=== PATIENT | female | born 1965 | race Caucasian/White ===

== ENCOUNTER → 2022-05-15 | Outpatient (CLI) | payer OTHER ==
[2022-05-15 18:42] LABS: C Reactive Protein <0.30 mg/dL (0.00-0.80); Rheumatoid Factor, Qnt <10 IU/mL (0-15); Uric Acid 3.8 mg/dL (2.9-7.7)
[2022-05-15 18:46] LABS: Basophils # (A) 0.03 X 10*3/uL (0.00-0.10); Basophils % (A) 0.5 %; Eosinophils # (A) 0.05 X 10*3/uL (0.04-0.35); Eosinophils % (A) 0.9 %; HCT 42.4 % (37.2-46.3); HGB 13.5 g/dL (12.0-15.0); Immature Grans, Automated 0.3 %; Lymphocytes # (A) 1.99 X 10*3/uL (0.90-5.00); Lymphocytes % (A) 34.5 %; MCH 28.3 pg (27.0-32.0); MCHC 31.8 g/dL (32.0-37.0); MCV 88.9 fL (80.0-97.0); Mean Platelet Volume 11.6 fL (9.5-12.2); Monocytes # (A) 0.34 X 10*3/uL (0.20-1.00); Monocytes % (A) 5.9 %; NRBC Per 100 WBC 0 /100 WBCS (0.0-0.0); Neutrophils # (A) 3.33 X 10*3/uL (1.80-7.70); Neutrophils % (A) 57.9 %; Platelet Count 296 X 10*3/uL (140-440); RBC 4.77 X 10*6/uL (4.10-5.20); RDW 13.3 % (11.5-14.5); WBC 5.76 X 10*3/uL (4.50-10.00)
[2022-05-15 20:18] LABS: DNA Double-Stranded NEGATIVE (NEGATIVE)
[2022-05-15 20:58] LABS: Erythrocyte Sedimentation Rate 17 mm/Hr (0-30)
--- NOTE | 2022-05-16 09:51 | MR ---
EXAMINATION TYPE: MR shoulder RT wo con DATE OF EXAM: 05/15/2022 COMPARISON: Outside right shoulder x-ray the 2021 HISTORY: Right shoulder pain with limited movement TECHNIQUE: Multiplanar, multisequence imaging of the right shoulder is performed without contrast. FINDINGS: Rotator Cuff: Marked abnormal signal in the distal supraspinatus tendon with small focal full-thickne ss tear sagittal image 25 involving articular surface fibers. Infraspinatus tendon intact. Subscapula ris tendon intact. Rotator cuff muscle bulk preserved. Acromioclavicular Joint: Type II downsloping acromion. Loss of the inferior fat plane. Mild to modera te superior capsular hypertrophy. Glenohumeral Joint: Moderate size joint effusion. No significant spurring. Mild to moderate joint spa ce narrowing. Labrum: The superior labrum has abnormal signal consistent with degenerative tearing. Biceps Tendon: The long head of biceps is in normal location within bicipital groove. Bone marrow signal: No focal abnormal marrow signal is appreciated. Other: No additional significant abnormality is appreciated. IMPRESSION: 1. Significant tendinopathy distal supraspinatus tendon with also some tearing present. 2. Moderate degenerative changes in right shoulder as detailed above.
[2022-05-16 11:56] LABS: HLA B27 NEGATIVE
== END | disposition home or self-care (01) ==
LOC: RADMRIMAIN 12:27
PROVIDERS: ATTEND Orthopaedic Surgery
DX: M19.011 Primary osteoarthritis, right shoulder (principal)
CPT/HCPCS: 84550; 85025; 85652; 86038; 86140; 86225; 86431; 86812

== ENCOUNTER → 2022-10-06 | Outpatient (CLI) | payer OTHER ==
[2022-10-06 23:03] LABS: Basophils # (A) 0.04 X 10*3/uL (0.00-0.10); Basophils % (A) 0.5 %; Eosinophils # (A) 0.07 X 10*3/uL (0.04-0.35); Eosinophils % (A) 0.9 %; HCT 41.3 % (37.2-46.3); HGB 13.4 g/dL (12.0-15.0); Immature Grans, Automated 0.7 %; Lymphocytes # (A) 2.56 X 10*3/uL (0.90-5.00); Lymphocytes % (A) 31.6 %; MCH 29.7 pg (27.0-32.0); MCHC 32.4 g/dL (32.0-37.0); MCV 91.6 fL (80.0-97.0); Mean Platelet Volume 10.9 fL (9.5-12.2); Monocytes # (A) 0.54 X 10*3/uL (0.20-1.00); Monocytes % (A) 6.7 %; NRBC Per 100 WBC 0 /100 WBCS (0.0-0.0); Neutrophils # (A) 4.83 X 10*3/uL (1.80-7.70); Neutrophils % (A) 59.6 %; Platelet Count 294 X 10*3/uL (140-440); RBC 4.51 X 10*6/uL (4.10-5.20); RDW 12.9 % (11.5-14.5)
[2022-10-06 23:09] LABS: African American GFR (CKD) 109.9 (60.0-200.0); Anion Gap 10.2 mmol/L (10.00-18.00); BUN/Creat Ratio 11.86 Ratio (12.00-20.00); Blood Urea Nitrogen 8.3 mg/dL (9.0-27.0); Calcium 9.5 mg/dL (8.7-10.3); Carbon Dioxide 26.8 mmol/L (20.0-27.5); Non-African American GFR(CKD) 94.8 (60.0-200.0); Potassium 4.3 mmol/L (3.5-5.5)
== END ==
LOC: LABWHC1 12:47
PROVIDERS: ATTEND Orthopaedic Surgery
DX: Z01.812 Encounter for preprocedural laboratory examination (principal); Z01.818 Encounter for other preprocedural examination; M75.41 Impingement syndrome of right shoulder
CPT/HCPCS: 36415; 80048; 85025; 93005

== ENCOUNTER 2022-10-17 06:06 | Day surgery (SDC) | payer OTHER ==
[2022-10-13 10:43] VITALS: BMI 23.1
--- NOTE | 2022-10-16 10:51 | P.HPOR ---
History of Present Illness H&P Date: 10/16/22 Chief Complaint: Right shoulder pain The patient is a 57-year-old abuav-hitr-peqizyam female who presents with progressive right shoulder pain for the past year. She's having pain with overhead use and at night. She's tried injections along with therapy without much relief. She is having daily pain that limits her. Review of Systems As per HPI Past Medical History Past Medical History: Fibromyalgia, Osteoarthritis (OA), Thyroid Disorder Additional Past Medical History / Comment(s): MIGRAINE HEADACHE- PAST HISTORY , HYPOTHYROIDISM - PROR NO MEDS NOW , History of Any Multi-Drug Resistant Organisms: None Reported Past Surgical History: Adenoidectomy, Section, Hysterectomy, Orthopedic Surgery, Tonsillectomy Additional Past Surgical History / Comment(s): STATES SHE HAD A POST OP INFECTION WITH C SECTION AND KNEE SURGERY REQUIRED HOSPITALIZATION AND IV ANTIBIOTICS , RIGHT KNEE WITH HARDWARE, SINUS SURGERY, SEVERAL HEMORRHOID SURGERIES, TUBES IN EARS, D&C , ARTHROSCOPIC RIGHT KNEE X2 Past Anesthesia/Blood Transfusion Reactions: Previous Problems w/ Anesthesia, Postoperative Nausea & Vomiting (PONV) Smoking Status: Current every day smoker - Past Family History Mother Family Medical History: Cancer Additional Family Medical History / Comment(s): LUNG CANCER, Medications and Allergies Home Medications Medication Instructions Recorded Confirmed Type Amitriptyline HCl 50 mg PO 1600 10/13/22 10/13/22 History Azelastine HCl 137 mcg EA NOSTRIL DAILY 10/13/22 10/13/22 History Fluticasone Nasal [place] [Flonase 1 spray EA NOSTRIL DAILY 10/13/22 10/13/22 History Nasal [place]] Morphine Sulfate ER [Ms Contin] 15 mg PO HS 10/13/22 10/13/22 History methylPREDNISolone [Medrol Dose 0 mg PO DIRECTED 10/13/22 10/13/22 History Pack] oxyCODONE HCL/ACETAMINOPHEN 1 tab PO Q4-6H PRN 10/13/22 10/13/22 History [Endocet 10-325 mg] Allergies Allergy/AdvReac Type Severity Reaction Status Date / Time gentamicin Allergy Vomiting Verified 10/13/22 09:47 Physical Examination - Shoulder right Appearance: effusion Tenderness with palpation: anterior Pain: with forward flexion ROM: forward flexion: 160 degrees ROM: internal rotation: mid lumbar ROM: external rotation: 50 degrees Strength: abduction: 5/5 Strength: external rotation: 5/5 Tests: internal impingement tests: positive Results The patient is a well-developed well-nourished female, approximate 5 foot 8/150 pounds of mesomorphic habitus. HEENT exam is nonfocal, neck is supple. Her distal neurovascular appears intact in the right upper extremity. - Diagnostic results Shoulder MRI: image reviewed (Right shoulder MRI is reviewed and shows a tear involving the supraspinatus along with degenerative changes involving the glenohumeral joint.) Assessment and Plan Assessment: Right shoulder impingement/symptomatic rotator cuff tear Right proximal bicipital tendinosis Plan: I talked to the patient length regarding her condition and treatment options. At this point she is quite symptomatic and limited despite previous conservative measures. After thorough discussion she opted to proceed with surgery. We will plan to proceed with arthroscopic evaluation with probable subacromial decompression, rotator cuff repair, and possible biceps tenotomy. Risks and benefits were discussed at length in layman's terms. Time with Patient: Less than 30
[~2022-10-17 06:06] MED LIST: DEXAMETHASONE SOD PHOSPHATE 4 MG/ML 1 ML VIAL IV ONE; HYDROmorphone 0.5 MG/0.5 ML SYRINGE IVP PRN; LACTATED RINGERS 1,000 ML IV SCH; ONDANSETRON 4 MG/2 ML VIAL IVP ONE
[2022-10-17] MEDS ORDERED: SCOPOLAMINE 1 MG/72 HR PATCH TRANSDERM ONE (07:26)
[2022-10-17] MEDS ORDERED: MIDAZOLAM 2 MG/2 ML VIAL IVP ONE (07:30)
[2022-10-17] MEDS ORDERED: fentaNYL (PF) 50 MCG/ML 2 ML AMP ONE (07:51)
[2022-10-17] MEDS ORDERED: DEXAMETHASONE SOD PHOSPHATE 4 MG/ML 1 ML VIAL ONE (07:51)
[2022-10-17] MEDS ORDERED: LIDOCAINE 2% INJ 20 MG/ML (2 ML VIAL) ONE (07:51)
[2022-10-17] MEDS ORDERED: MIDAZOLAM 2 MG/2 ML VIAL ONE (07:51)
[2022-10-17] MEDS ORDERED: ROPIVACAINE 5 MG/ML 30 ML VIAL ONE (07:51)
[2022-10-17] MEDS ORDERED: PROPOFOL 10 MG/ML 20 ML VIAL IV ONE (07:51)
[2022-10-17] MEDS ORDERED: SUCCINYLCHOLINE CHLORIDE 200 MG/10 ML VIAL IV ONE (07:51)
[2022-10-17] MEDS ORDERED: SODIUM CHLORIDE 0.9% 100 ML with ceFAZolin 2,000 MG IV ONE ×2 (08:05)
[2022-10-17] MEDS ORDERED: EPINEPHrine (PF) 1 ML in SODIUM CHLORIDE 0.9% IRRIGATIO 3,000 ML IRRIGATION ONE ×8 (08:21)
--- NOTE | 2022-10-17 08:43 | P.ANPRN ---
Procedure Note - Anesthesia - Nerve Block Performed Right Interscalene Single Time Out Performed: Yes Date of Procedure: 10/17/22 Procedure Start Time: 07:00 Procedure Stop Time: 07:06 Location of Patient: PreOp Indication: Acute Post-Operative Pain, Requested by Surgeon Sedation Type: Sedate with meaningful contact maintained Preparation: Sterile Prep, Sterile Dressing Position: Sitting Catheter: None Needle Types: Facet Needle Gauge: 21 Ultrasound used to visualize needle placement: Yes Ultrasound used to observe medication spread: Yes Injectate: 0.5% Ropivacaine (see comment for volume) (20 ml + decadron 4 mg) Blood Aspirated: No Pain Paresthesia on Injection Noted: No Resistance on Injection: Normal Image Stored and Saved: Yes Events: Uneventful and Well Tolerated
--- NOTE | 2022-10-17 09:18 | P.OP ---
Date of Procedure: 10/17/22 Preoperative Diagnosis: Right shoulder impingement/rotator cuff tear Postoperative Diagnosis: Same, 1 cm supraspinatus tear Procedure(s) Performed: Right shoulder arthroscopic subacromial decompression/rotator cuff repair Implants: Arthrex 4.75 mm swivel lock anchor 1, 5.5 mm swivel lock anchor 1 Anesthesia: kym BORJA Surgeon: Tian Escamilla Fractionation Supervisor #1: Jasiel Kinsey Estimated Blood Loss (ml): 10 Pathology: none sent Condition: stable Disposition: PACU Indications for Procedure: The patient's a 57-year-old female who presents with right shoulder pain for the past year despite conservative treatment. A discussion of the risks and benefits of operative intervention versus continued conservative measures was made with the patient. She opted to proceed with surgery. Operative risks to include infection, neurovascular injury, development of blood clots, possible tendon rerupture, possible postoperative stiffness and need for subsequent procedures was discussed. Informed consent was obtained. Operative Findings: As below Description of Procedure: The patient was brought to the operating room, and after induction of general anesthesia was placed in a beachchair position. A preoperative interscalene block was placed for postoperative analgesia. I examined the right shoulder. There was no gross block to passive motion or gross glenohumeral instability. The right upper extremity was prepped and draped in normal fashion. The bony outlines the acromion, distal clavicle, and coracoid process were outlined with a skin marker. The glenohumeral joint was inflated with 50 mL of saline utilizing a spinal needle from posterior approach. A posterior portal was made through a 5 mm skin incision 1 cm medial and inferior to the posterior lateral border time. A blunt trocar was used to easily into the joint. Diagnostic arthroscopy was performed. An anterior portal was made just lateral to the coracoid process entering the joint above the subscapularis tendon. The subscapularis tendon appeared to be intact. Anterior labrum was intact. The inferior recess was inspected. The posterior labrum was intact. The biceps and its anchor appear to be intact. It was some synovitis of the rotator interval debrided with a motorized shaver. Grade 2 chondral changes were noted involving the anterior aspect of the humeral head. On inspection the rotator cuff, a high-grade partial-thickness tear involving the anterior aspect the supraspinatus was noted. The posterior portion of the rotator cuff appeared to be intact. A lateral portal was made 2 centimeters inferior to the anterior lateral border of the acromion. The rotator cuff was then mobilized with a traction suture. This was then easily brought back to the greater tuberosity. The soft tissue on the undersurface of the acromion was debrided with a motorized shaver and electrocautery clearly defining the anterior medial and lateral borders as well as the distal clavicle. An anterior inferior acromioplasty was performed with a motorized shakira starting anterolateral, then extending this posteriorly, then extending this medially. I converted to a flat acromion and this was verified in the posterior and lateral viewing portals. The greater tuberosity was lightly decorticating with a shaver down to a bleeding bony surface. An accessory superior lateral portal was made just off the lateral edge of the acromion for anchor placement. A 4.75 mm swivel lock anchor was placed just off the articular surface. Good purchase was obtained. These fiber tapes were then passed the rotator cuff with a scorpion suture passer. A lateral row was created utilizing these tapes along with a central suture. 5.5 mm swivel lock anchor was placed laterally. Good purchase was obtained. Final arthroscopic view showed adequate compression at the footprint. The arthroscope was then removed. The portals were closed with simple 3-0 nylon sutures. A sterile dressing was applied in addition to a sling. The patient was then awoken from general anesthesia and transferred to recovery room in good condition. Blood loss was estimated at 10 mL. No complications were incurred. Sponge and needle counts were correct in the case. Jasiel LOUIE assisted and the major components of the case to include arm positioning, anchor placement, and rotator cuff repair.
[2022-10-17 09:32] VITALS: TEMP 96.8
[2022-10-17] MEDS ORDERED: HYDROcodone/APAP 10-325MG 1 EACH TAB ONE (09:57)
[2022-10-17] MEDS ORDERED: HYDROcodone/APAP 10-325MG 1 EACH TAB PO ONE (10:00)
[2022-10-17 10:33] VITALS: RESP 17
[2022-10-17 10:47] VITALS: BP 156/100; PULSE 97
== END 2022-10-17 11:00 | disposition home or self-care (01) ==
LOC: OR 06:06
PROVIDERS: ATTEND Orthopaedic Surgery
DX: M75.101 Unspecified rotator cuff tear or rupture of right shoulder, not specified as traumatic (principal); M75.41 Impingement syndrome of right shoulder; G89.18 Other acute postprocedural pain; F17.200 Nicotine dependence, unspecified, uncomplicated; E07.9 Disorder of thyroid, unspecified; M79.7 Fibromyalgia; E03.9 Hypothyroidism, unspecified; M19.90 Unspecified osteoarthritis, unspecified site; M25.811 Other specified joint disorders, right shoulder; Z79.52 Long term (current) use of systemic steroids; Z80.1 Family history of malignant neoplasm of trachea, bronchus and lung; Z87.19 Personal history of other diseases of the digestive system
CPT/HCPCS: 64415; 76942; 29827; 29826; C1713 ×2; C1894; J2250; J0330; J1100; J2405; J0690; J0171; J3010; J2795; J2704; J2001

== ENCOUNTER 2023-05-29 16:11 | Emergency (ER) | payer OTHER ==
--- NOTE | 2023-05-29 16:37 | ED ---
Female Urogenital HPI - General Chief complaint: Urogenital Stated complaint: blood in urine Time Seen by Provider: 05/29/23 16:18 Source: patient Mode of arrival: ambulatory Limitations: no limitations - History of Present Illness Initial comments: 57-year-old female presenting to the ED with a chief complaint of hematuria. Patient states since approximately 2 PM has had bright red blood in her urine, no clots. Denies frequency, dysuria, urgency. Denies abdominal pain. Denies flank pain. Denies chest pains and shortness of breath. States history of "simple cysts" on her kidney. 10 cigarette smoker for the past 18 years. No other complaints. - Related Data Home Medications Medication Instructions Recorded Confirmed Amitriptyline HCl 50 mg PO 1600 10/13/22 10/13/22 Azelastine HCl [Astelin Nasal 137 mcg EA NOSTRIL DAILY 10/13/22 10/13/22 [place]] Fluticasone Nasal [place] [Flonase 1 spray EA NOSTRIL DAILY 10/13/22 10/13/22 Nasal [place]] Morphine Sulfate ER [Ms Contin] 15 mg PO HS 10/13/22 10/17/22 oxyCODONE HCL/ACETAMINOPHEN 1 tab PO Q4-6H PRN 10/13/22 10/17/22 [Endocet 10-325 mg] Previous Rx's Medication Instructions Recorded HYDROcodone/APAP 10-325MG [[place] 1 tab PO Q6HR PRN #28 tab 10/17/22 10-325] Ondansetron [Zofran] 4 mg PO Q8HR PRN #12 tab 10/17/22 Allergies Allergy/AdvReac Type Severity Reaction Status Date / Time No Known Allergies Allergy Verified 05/29/23 16:17 Review of Systems ROS Statement: Those systems with pertinent positive or pertinent negative responses have been documented in the HPI. ROS Other: All systems not noted in ROS Statement are negative. Past Medical History Past Medical History: No Reported History History of Any Multi-Drug Resistant Organisms: None Reported Past Surgical History: Hysterectomy, Orthopedic Surgery Smoking Status: Current every day smoker Past Alcohol Use History: None Reported Past Drug Use History: None Reported General Exam Limitations: no limitations Head exam: Present: atraumatic, normocephalic Respiratory exam: Present: normal lung sounds bilaterally Cardiovascular Exam: Present: regular rate, normal rhythm GI/Abdominal exam: Present: soft (No tenderness to palpation. No rebound guarding or rigidity. No CVA tenderness to palpation bilaterally.) Neurological exam: Present: alert, oriented X3 Skin exam: Present: warm, dry Course Vital Signs 05/29/23 16:13 Temperature 98.6 F Pulse Rate 100 Respiratory 20 Rate Blood Pressure 184/103 O2 Sat by Pulse 97 Oximetry Medical Decision Making - Medical Decision Making Was pt. sent in by a medical professional or institution (, [facility], ORTHOPEDIC CODER, urgent care, hospital, or assisted...) When possible be specific @ -No Did you speak to anyone other than the patient for history (EMS, parent, family, police, friend...)? What history was obtained from this source @ -No Did you review nursing and triage notes (agree or disagree)? Why? @ -I reviewed and agree with nursing and triage notes Were old charts reviewed (outside hosp., previous admission, EMS record, old EKG, old radiological studies, urgent care reports/EKG's, assisted records)? Report findings @ -No old charts were reviewed Differential Diagnosis (chest pain, altered mental status, abdominal pain women, abdominal pain men, vaginal bleeding, weakness, fever, dyspnea, syncope, headache, dizziness, GI bleed, back pain, seizure, CVA, palpatations, mental health, musculoskeletal)? @ -Differential Abdominal Pain Women: Appendicitis, Cholecystitis, diverticulosis, ischemic bowel, pancreatitis, hepatitis, UTI, gastroenteritis, AAA, incarcerated hernia, bowel obstruction, constipation, inflammatory bowel, hepatitis, peptic ulcer disease, splenic infarction, perforated viscus, vulvitis, ovarian torsion, PID, kidney stone, placenta abruption, this is not meant to be an all-inclusive list EKG interpreted by me (3pts min.). @ -None X-rays interpreted by me (1pt min.). @ -None done CT interpreted by me (1pt min.). @ -None done U/S interpreted by me (1pt. min.). @ -None done What testing was considered but not performed or refused? (CT, X-rays, U/S, labs)? Why? @ -None What meds were considered but not given or refused? Why? @ -None Did you discuss the management of the patient with other professionals (professionals i.e. , JACY, ORTHOPEDIC CODER, lab, RT, psych nurse, health and social care teacher, community health nurse supervisor, teacher, senior administrative services officer, insurance case manager)? Give summary @ -No Was smoking cessation discussed for >3mins.? @ -No Was critical care preformed (if so, how long)? @ -No Were there social determinants of health that impacted care today? How? (Homelessness, low income, unemployed, alcoholism, drug addiction, transportation, low edu. Level, literacy, decrease access to med. care, intermediate, rehab)? @ -No Was there de-escalation of care discussed even if they declined (Discuss DNR or withdrawal of care, Hospice)? DNR status @ -No What co-morbidities impacted this encounter? (DM, HTN, Smoking, COPD, CAD, Cancer, CVA, ARF, Chemo, Hep., AIDS, mental health diagnosis, sleep apnea, morbid obesity)? @ -None Was patient admitted / discharged? Hospital course, mention meds given and route, prescriptions, significant lab abnormalities, going to OR and other pertinent info. @ -Discharge. UA did show minimal blood and RBCs are no evidence of infection. At this time patient completely asymptomatic. Discharged home to follow up with PCP. Discussed return precautions patient verbalized agreement. Undiagnosed new problem with uncertain prognosis? @ -No Drug Therapy requiring intensive monitoring for toxicity (Heparin, Nitro, Insulin, Cardizem)? @ -No Were any procedures done? @ -No Diagnosis/symptom? @ -Hematuria Acute, or Chronic, or Acute on Chronic? @ -Acute Uncomplicated (without systemic symptoms) or Complicated (systemic symptoms)? @ -Uncomplicated Side effects of treatment? @ -No Exacerbation, Progression, or Severe Exacerbation? @ -No Poses a threat to life or bodily function? How? (Chest pain, [place], [place], pneumonia, PE, COPD, DKA, ARF, appy, cholecystitis, CVA, Diverticulitis, Homicidal, Suicidal, threat to staff... and all critical care pts) @ -No - Lab Data Lab Results 05/29/23 Range/Units 16:26 Urine Color Yellow Urine Appearance Clear (Clear) Urine pH 6.0 (5.0-8.0) Ur Specific [place] 1.015 (1.001-1.035) Urine Protein Negative (Negative) Urine Glucose (UA) Negative (Negative) Urine Ketones 1+ H (Negative) Urine Blood Small H (Negative) Urine Nitrite Negative (Negative) Urine Bilirubin Negative (Negative) Urine Urobilinogen <2.0 (<2.0) mg/dL Ur Leukocyte Esterase Negative (Negative) Urine RBC 4 (0-5) /hpf Urine WBC 1 (0-5) /hpf Ur Squamous Epith Cells <1 (0-4) /hpf Urine Mucus Occasional H (None) /hpf Disposition Clinical Impression: Hematuria Disposition: HOME SELF-CARE Condition: Good Instructions (If sedation given, give patient instructions): Hematuria (ED) Additional Instructions: Please return to the Emergency Department if symptoms worsen or any other concerns. Is patient prescribed a controlled substance at d/c from ED?: No Referrals: Luli Diaz MD [Primary Care Provider] - 1-2 days Time of Disposition: 17:40
[2023-05-29 17:16] LABS: Appearance,Urine Clear (Clear); Bilirubin,Urine Negative (Negative); Blood,Urine Small (Negative); Color,Urine Yellow; Glucose,Urine (UA) Negative (Negative); Ketones,Urine 1+ (Negative); Leukocyte Esterase,Urine Negative (Negative); Mucus,Urine Occasional /hpf; Nitrite,Urine Negative (Negative); Protein,Urine Negative (Negative); RBC,Urine 4 /hpf (0-5); Specific Gravity,Urine 1.015 (1.001-1.035); Squamous Epithelial Cell,Urine <1 /hpf (0-4); Urobilinogen,Urine <2.0 mg/dL (<2.0); WBC,Urine 1 /hpf (0-5)
[2023-05-29 18:35] VITALS: BP 170/94; PULSE 101; RESP 18; TEMP 98.4
== END 2023-05-29 18:35 | disposition home or self-care (01) ==
LOC: EC 16:11
DX: R31.9 Hematuria, unspecified (principal); F17.200 Nicotine dependence, unspecified, uncomplicated
CPT/HCPCS: 81001; 99283

== ENCOUNTER 2025-06-06 09:17 | Emergency (ER) | payer OTHER ==
[2025-06-06] MEDS: OXYMETAZOLINE 0.05% NASL SPRAY 1 SPRAY BOTTLE NASAL STA (09:42)
--- NOTE | 2025-06-06 10:11 | ED ---
General Adult HPI - General Chief complaint: ENT Stated complaint: Neck/head pain Time Seen by Provider: 06/06/25 09:27 Source: patient, RN notes reviewed, old records reviewed Mode of arrival: ambulatory Limitations: no limitations - History of Present Illness Initial comments: 59-year-old female presenting for evaluation of nosebleed. Patient states that this morning she had developed some moderate to severe bleeding from the left nostril. This began suddenly without any obvious triggering event. Patient states she has been quite stressed and is dealing with some chronic neck issues for which she has had outpatient MRI. She denies trauma to the nose. She denies prior history of hypertension. - Related Data Home Medications Medication Instructions Recorded Confirmed Amitriptyline HCl 50 mg PO 1600 10/13/22 10/13/22 Azelastine HCl [Astelin Nasal 137 mcg EA NOSTRIL DAILY 10/13/22 10/13/22 [place]] Fluticasone Nasal [place] [Flonase 1 spray EA NOSTRIL DAILY 10/13/22 10/13/22 Nasal [place]] Morphine Sulfate ER [Ms Contin] 15 mg PO HS 10/13/22 10/17/22 oxyCODONE HCL/ACETAMINOPHEN 1 tab PO Q4-6H PRN 10/13/22 10/17/22 [Endocet 10-325 mg] Previous Rx's Medication Instructions Recorded HYDROcodone/APAP 10-325MG [[place] 1 tab PO Q6HR PRN #28 tab 10/17/22 10-325] Ondansetron [Zofran] 4 mg PO Q8HR PRN #12 tab 10/17/22 Allergies Allergy/AdvReac Type Severity Reaction Status Date / Time clindamycin AdvReac Nausea & Verified 06/06/25 09:36 Vomiting Review of Systems ROS Statement: Those systems with pertinent positive or pertinent negative responses have been documented in the HPI. ROS Other: All systems not noted in ROS Statement are negative. Past Medical History Past Medical History: No Reported History Additional Past Medical History / Comment(s): shoulder, neck, back pain History of Any Multi-Drug Resistant Organisms: None Reported Past Surgical History: Hysterectomy, Orthopedic Surgery Past Psychological History: Depression Smoking Status: Current every day smoker Past Alcohol Use History: Rare Past Drug Use History: Marijuana General Exam Limitations: no limitations General appearance: alert, anxious Head exam: Present: atraumatic, normocephalic Eye exam: Present: normal appearance, PERRL ENT exam: Present: other (No anterior nosebleed. There is a small amount of blood at the oropharynx) Respiratory exam: Present: normal lung sounds bilaterally. Absent: respiratory distress, wheezes Cardiovascular Exam: Present: regular rate, normal rhythm GI/Abdominal exam: Present: soft. Absent: distended, tenderness, guarding Neurological exam: Present: alert, oriented X3, CN II-XII intact. Absent: motor sensory deficit Psychiatric exam: Present: anxious Skin exam: Present: warm, intact Course Vital Signs 06/06/25 06/06/25 09:30 10:16 Temperature 99.0 F 98.5 F Pulse Rate 105 H 97 Respiratory 18 16 Rate Blood Pressure 164/115 152/91 O2 Sat by Pulse 98 96 Oximetry Medical Decision Making - Medical Decision Making Was pt. sent in by a medical professional or institution (, [facility]Y, PROFESSIONAL MODEL, urgent care, hospital, or jail...) When possible be specific @ -No Did you speak to anyone other than the patient for history (EMS, parent, family, police, friend...)? What history was obtained from this source @ -No Did you review nursing and triage notes (agree or disagree)? Why? @ -I reviewed and agree with nursing and triage notes Were old charts reviewed (outside hosp., previous admission, EMS record, old EKG, old radiological studies, urgent care reports/EKG's, jail records)? Report findings @ -No old charts were reviewed Differential Diagnosis: Nosebleed EKG interpreted by me (3pts min.). @ -As above X-rays interpreted by me (1pt min.). @ -None done CT interpreted by me (1pt min.). @ -None done U/S interpreted by me (1pt. min.). @ -None done What testing was considered but not performed or refused? (CT, X-rays, U/S, labs)? Why? @ -None What meds were considered but not given or refused? Why? @ -None Did you discuss the management of the patient with other professionals (professionals i.e. JACY Reyes, PROFESSIONAL MODEL, lab, RT, psych nurse, social work program coordinator, housetrailer servicer, teacher, business services officer, continuous pillowcase cutter)? Give summary @ -No Was smoking cessation discussed for >3mins.? @ -No Was critical care preformed (if so, how long)? @ -No Were there social determinants of health that impacted care today? How? (Homelessness, low income, unemployed, alcoholism, drug addiction, transportation, low edu. Level, literacy, decrease access to med. care, detention, rehab)? @ -No Was there de-escalation of care discussed even if they declined (Discuss DNR or withdrawal of care, Hospice)? DNR status @ -No What co-morbidities impacted this encounter? (DM, HTN, Smoking, COPD, CAD, Can cer, CVA, ARF, Chemo, Hep., AIDS, mental health diagnosis, sleep apnea, morbid obesity)? @ -None Was patient admitted / discharged? Hospital course, mention meds given and route, prescriptions, significant lab abnormalities, going to OR and other pertinent info. @ -[59-year-old female presenting with nosebleed. Bleeding is almost completely resolved prior to arrival. There is some minimal blood in the posterior oropharynx. Patient is given Afrin nasal spray and ice water. Nosebleed is completely resolved the patient monitored in the emergency department without recurrence. Undiagnosed new problem with uncertain prognosis? @ -No Drug Therapy requiring intensive monitoring for toxicity (Heparin, Nitro, Insulin, Cardizem)? @ -No Were any procedures done? @ -No Diagnosis/symptom? @ -Nosebleed Acute, or Chronic, or Acute on Chronic? @ -Acute Uncomplicated (without systemic symptoms) or Complicated (systemic symptoms)? @ -Default Side effects of treatment? @ -No Exacerbation, Progression, or Severe Exacerbation? @ -No Poses a threat to life or bodily function? How? (Chest pain, [place], [place], pneumonia, PE, COPD, DKA, ARF, appy, cholecystitis, CVA, Diverticulitis, Homicidal, Suic idal, threat to staff... and all critical care pts) @ -No Disposition Clinical Impression: Epistaxis Disposition: HOME SELF-CARE Condition: Good Instructions (If sedation given, give patient instructions): Nosebleed (ED) Is patient prescribed a controlled substance at d/c from ED?: No Referrals: Luli Diaz MD [Primary Care Provider] - 1-2 days Time of Disposition: 10:32
[2025-06-06 10:17] VITALS: TEMP 98.5
[2025-06-06 10:52] VITALS: BP 152/90; PULSE 92; RESP 18
== END 2025-06-06 10:51 | disposition home or self-care (01) ==
LOC: EC 09:17
DX: R04.0 Epistaxis (principal); F17.200 Nicotine dependence, unspecified, uncomplicated; Z88.1 Allergy status to other antibiotic agents
CPT/HCPCS: 99283